=== PATIENT | male | born 1985 | race Caucasian/White ===

== ENCOUNTER 2020-04-27 14:06 | Emergency (ER) | payer OTHER ==
[~2020-04-27 14:06] MED LIST: AUGMENTIN 875-1 EACH PO; KEFLEX500 MG PO; NAPROSYN500 MG PO; NEOSPORIN OINT15 GM TOP
== END 2020-04-27 16:02 | disposition left against medical advice (07) ==
LOC: ER1 14:06
DX: R05 Cough (principal); Z20.828 Contact with and (suspected) exposure to other viral communicable diseases; Z53.21 Procedure and treatment not carried out due to patient leaving prior to being seen by health care provider

== ENCOUNTER 2020-05-17 07:02 | Emergency (ER) | payer OTHER ==
[2020-05-17] MEDS ORDERED: IBU800 MG PO (10:43)
[2020-05-17] MEDS ORDERED: PREDNISONE20 MG PO (10:45)
[2020-05-17] MEDS ORDERED: CYCLOBENZAPRINE10 MG PO (10:46)
== END 2020-05-17 11:20 | disposition home or self-care (01) ==
LOC: ER1 07:02
DX: S39.012A Strain of muscle, fascia and tendon of lower back, initial encounter (principal); F17.210 Nicotine dependence, cigarettes, uncomplicated; Z90.49 Acquired absence of other specified parts of digestive tract; X58.XXXA Exposure to other specified factors, initial encounter
CPT/HCPCS: 72100; 81001; 87086; 96372; 99283; J1885; J2360; J2930

== ENCOUNTER 2020-11-18 17:14 | Emergency (ER) | payer OTHER ==
[~2020-11-18 17:14] MED LIST changes: +CYCLOBENZAPRINE10 MG PO; +IBU800 MG PO; +PREDNISONE20 MG PO
[2020-11-18] MEDS ORDERED: NORFLEX 100 MG100 MG PO (19:37)
[2020-11-18] MEDS ORDERED: TORADOL 10 MG T10 MG PO (19:37)
== END 2020-11-18 20:20 | disposition home or self-care (01) ==
LOC: ER1 17:14
DX: M54.5 Low back pain (principal); Z87.442 Personal history of urinary calculi; Z90.49 Acquired absence of other specified parts of digestive tract; F17.210 Nicotine dependence, cigarettes, uncomplicated
CPT/HCPCS: 96372; 96374; 99283; J1100; J1885; J2360

== ENCOUNTER → 2020-12-01 | Outpatient (CLI) | payer OTHER ==
[~2020-12-01] MED LIST changes: +NORFLEX 100 MG100 MG PO; +TORADOL 10 MG T10 MG PO
== END ==
LOC: KOH-I 16:05
DX: G89.29 Other chronic pain (principal); M54.5 Low back pain
CPT/HCPCS: 72100